=== PATIENT | male | born 1960 | race Hispanic/Latino ===

== ENCOUNTER → 2019-11-19 | Outpatient (CLI) | payer OTHER ==
[2019-11-19 09:53] LABS: BASOPHIL # 0.1 10^3/uL (0.0-0.1); BASOPHIL % 0.8 % (0.0-0.2); EOSINOPHIL # 0.6 10^3/uL (0.0-0.2); EOSINOPHIL % 5.9 % (0.0-5.0); LYMPHOCYTES # 1.79 10^3/uL1 (1.0-4.8); LYMPHOCYTES % 17.4 % (24.0-44.0); MEAN CORP HGB 29.6 pg (26-34); MONOCYTES # 0.6 10^3/uL (0.3-0.8); MONOCYTES % 5.8 % (5.0-12.0); NEUTROPHIL # 7.2 10^3/uL (1.8-7.7); NEUTROPHILS % 69.6 % (41.0-85.0); RED CELL DISTRIBUTION WIDTH 17.9 % (11.5-14.5)
[2019-11-19 10:07] LABS: CALCIUM 8.7 mg/dL (8.4-10.5)
== END | disposition home or self-care (01) ==
LOC: NPLAB 09:33
PROVIDERS: ATTEND Internal Medicine
DX: A41.9 Sepsis, unspecified organism (principal)
CPT/HCPCS: 36415; 80048; 80053; 85025

== ENCOUNTER → 2022-03-20 | Outpatient (CLI) | payer OTHER ==
[2022-03-20 15:04] LABS: BASOPHIL # 0.1 10^3/uL (0.0-0.1); BASOPHIL % 0.7 % (0.0-0.2); EOSINOPHIL % 10.6 % (0.0-5.0); LYMPHOCYTES # 1.22 10^3/uL1 (1.0-4.8); LYMPHOCYTES % 13.2 % (24.0-44.0); MEAN CORP HGB 30.1 pg (26-34); MONOCYTES % 10.4 % (5.0-12.0); NEUTROPHILS % 64.9 % (41.0-85.0); RED CELL DISTRIBUTION WIDTH 16.7 % (11.5-14.5)
[2022-03-20 15:21] LABS: CARBON DIOXIDE 30.3 mmol/L (20.0-32)
== END | disposition home or self-care (01) ==
LOC: NPLAB 14:29
PROVIDERS: ATTEND Internal Medicine
DX: I10 Essential (primary) hypertension (principal); E87.6 Hypokalemia; I68.8 Other cerebrovascular disorders in diseases classified elsewhere; N17.9 Acute kidney failure, unspecified; R60.9 Edema, unspecified
CPT/HCPCS: 80053; 83880; 85025